=== PATIENT | female | born 1980 | race Caucasian/White ===

== ENCOUNTER 2025-04-01 14:00 | Outpatient (RCR) | payer BC, SELFPAY ==
--- NOTE | 2025-03-17 16:01 | ONC.NURNOTE ---
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
[2025-03-18 10:50] VITALS: BP 93/65; PULSE 88; RESP 17; TEMP 36.5; O2SAT 100
[2025-03-18] MEDS: SODIUM CHLORIDE 0.9 % (FLUSH) 10 ML SYRINGE IVF (11:40)
[2025-03-18 11:55] VITALS: BP 130/84; PULSE 82; RESP 18; O2SAT 97
[2025-03-18 12:30] VITALS: BP 119/75; PULSE 86; RESP 14; TEMP 36.4; O2SAT 100
[2025-03-22 14:41] VITALS: BP 125/79; PULSE 94; RESP 16; TEMP 36.1; O2SAT 97
[2025-03-22] MEDS: SODIUM CHLORIDE 0.9 % (FLUSH) 10 ML SYRINGE IVF (14:55)
[2025-03-22 15:22] VITALS: BP 126/79; PULSE 88; RESP 16; TEMP 36.8; O2SAT 100
[2025-03-22 15:45] VITALS: BP 124/74; PULSE 71; RESP 16; O2SAT 97
[2025-03-25 14:14] VITALS: BP 124/77; PULSE 91; RESP 16; TEMP 36.6; O2SAT 100
[2025-03-25] MEDS: SODIUM CHLORIDE 0.9 % (FLUSH) 10 ML SYRINGE IVF (14:28)
[2025-03-25 14:49] VITALS: BP 126/77; PULSE 87; RESP 16; TEMP 36.6; O2SAT 100
[2025-03-25 15:15] VITALS: BP 112/78; PULSE 87; RESP 16; TEMP 36.4; O2SAT 100
[2025-03-30 14:15] VITALS: BP 172/93; PULSE 103; TEMP 36.9; O2SAT 100
[2025-03-30 14:24] VITALS: BP 116/76
[2025-03-30] MEDS: SODIUM CHLORIDE 0.9 % (FLUSH) 10 ML SYRINGE IVF (14:45)
[2025-03-30 15:07] VITALS: BP 155/95; PULSE 90; RESP 16; O2SAT 91
[2025-03-30 15:45] VITALS: BP 146/80; PULSE 89; RESP 16; O2SAT 100
[2025-04-01 13:42] VITALS: BP 130/77; PULSE 94; TEMP 36.6; O2SAT 99
[2025-04-01] MEDS: SODIUM CHLORIDE 0.9 % (FLUSH) 10 ML SYRINGE IVF (13:59)
[2025-04-01 14:20] VITALS: BP 114/73; PULSE 84; RESP 16; TEMP 36.1; O2SAT 99
== END 2025-09-14 23:59 | disposition home or self-care (01) ==
LOC: CCIC 14:00
PROVIDERS: PCP Family Medicine; Referring Provider Family Medicine; Visit Provider Clinical Nurse Specialist
DX: D50.9 Iron deficiency anemia, unspecified (principal); N18.32 Chronic kidney disease, stage 3b
CPT/HCPCS: 96365; J1756; J7050